=== PATIENT | female | born 1970 | race Caucasian/White ===

== ENCOUNTER 2017-02-27 08:24 | Day surgery (SDC) | payer BC ==
[~2017-02-27] VITALS: Ht 172.7 cm; Wt 65.8 kg
[~2017-02-27 08:24] MED LIST: AMOX875T PO; AZEL1SPR3; HUMI40KI2 SC; OMEP40CA2 PO; PRED20TA PO
[2017-02-27] MEDS ORDERED: NS 1,000 ML IV SCH (08:45)
[2017-02-27] MEDS ORDERED: PROPOFOL 200 MG/20 ML VIAL As Ordered ONE (09:07)
--- NOTE | 2017-02-27 09:29 | ROOR ---
Patient Name: Shanae Vaughn Procedure Date: 02/27/2017 9:00 AM Date of : 1970 Age: 46 Room: [facility] Gender: Female Note Status: Finalized Procedure: Total Colonoscopy to Anastomosis + Biopsies Indications: High risk colon cancer surveillance: Crohn's small and large intestine Providers: Reilly Sanchez MD Referring MD: Jordi Baxter Requesting Provider: Medicines: Monitored Anesthesia Care Complications: No immediate complications. Procedure: Pre-Anesthesia Assessment: - The heart rate, respiratory rate, oxygen saturations, blood pressure, adequacy of pulmonary ventilation, and response to care were monitored throughout the procedure. The Colonoscope was introduced through the anus and advanced to the anus to examine an anastomosis. This was the intended extent. The colonoscopy was performed without difficulty. The patient tolerated the procedure well. The quality of the bowel preparation was excellent. Findings: The perianal and digital rectal examinations were normal. There was evidence of a prior end-to-side ileo-colonic anastomosis at the hepatic flexure. This was patent and was characterized by congestion, edema, erosion, erythema and ulceration. The anastomosis was traversed. A stenosis was found in the recto-sigmoid colon and was traversed. Biopsies were taken with a cold forceps for histology. Inflammation characterized by congestion (edema), erythema, friability, granularity and shallow ulcerations was found as small patches surrounded by normal mucosa in the rectum. This was moderate in severity. Biopsies were taken with a cold forceps for histology. The exam was otherwise without abnormality. Impression: - Patent end-to-side ileo-colonic anastomosis, characterized by congestion, edema, erosion, erythema and ulceration. - Stricture in the recto-sigmoid colon. Biopsied. - Crohn's disease, with ileitis and colitis. Inflammation was found in the rectum. This was moderate in severity. Biopsied. - The examination was otherwise normal. - Ileocolonic Crohn's disease. Recommendation: - Discharge patient to home. - Continue present medications. - Await pathology results. - Telephone GI clinic for pathology results in 1 week. - Return to GI office in 2 weeks. - Await pathology results. - Check Portal Online for Path Results.([email or web address] - The findings and recommendations were discussed with the patient's family. Reilly Sanchez MD Reilly Sanchez MD 02/27/2017 9:28:54 AM This report has been signed electronically. Number of Addenda: 0 Note Initiated On: 02/27/2017 9:00 AM Estimated Blood Loss: Estimated blood loss: none.
[2017-02-27 09:40] VITALS: BP 130/76
== END 2017-02-27 10:05 | disposition home or self-care (01) ==
LOC: M OPP 08:24 → EDSTATUS 09:30 → M OPP 10:05
PROVIDERS: ATTEND Internal Medicine Gastroenterology
DX: K50.812 Crohn's disease of both small and large intestine with intestinal obstruction (principal); Z98.0 Intestinal bypass and anastomosis status; R19.7 Diarrhea, unspecified; K62.5 Hemorrhage of anus and rectum; K63.89 Other specified diseases of intestine; R63.0 Anorexia; R53.83 Other fatigue; J32.9 Chronic sinusitis, unspecified; F17.210 Nicotine dependence, cigarettes, uncomplicated; Z88.8 Allergy status to other drugs, medicaments and biological substances; Z88.2 Allergy status to sulfonamides; Z88.1 Allergy status to other antibiotic agents; Z79.899 Other long term (current) drug therapy; Z79.52 Long term (current) use of systemic steroids; Z80.9 Family history of malignant neoplasm, unspecified

== ENCOUNTER 2017-04-09 13:39 | Outpatient (CLI) | payer BC ==
[~2017-04-09] VITALS: Ht 172.7 cm; Wt 66.4 kg
[2017-04-09] MEDS ORDERED: USTEKINUMAB 390 MG in NS 172 ML IV ONE (15:00)
== END 2017-04-09 16:40 | disposition home or self-care (01) ==
LOC: M INFU 13:39
PROVIDERS: ATTEND Internal Medicine Gastroenterology
DX: K50.90 Crohn's disease, unspecified, without complications (principal); Z88.8 Allergy status to other drugs, medicaments and biological substances; Z88.1 Allergy status to other antibiotic agents; Z88.2 Allergy status to sulfonamides; Z87.19 Personal history of other diseases of the digestive system; Z79.52 Long term (current) use of systemic steroids; Z79.2 Long term (current) use of antibiotics; Z79.899 Other long term (current) drug therapy
CPT/HCPCS: 96365; 96366; Q9989